=== PATIENT | male | born 1945 | race Caucasian/White ===

== ENCOUNTER 2024-08-29 02:07 | Inpatient (IN) | payer MEDICARE, MEDICAID ==
[2024-08-29] VITALS (25 sets, daily range): BP systolic 79–116; BP diastolic 26–82; PULSE 83–114; RESP 12–20; TEMP 97.4–98.5; O2SAT 94–96
[~2024-08-29] VITALS: Ht 157.5 cm; Wt 63.6 kg
[~2024-08-29 02:07] MED LIST: CEPH500C2 PO; ENZA40CA PO; PANT40TA54 PO; PHEN-716 PO
[2024-08-29 02:52] LABS: ALANINE AMINOTRANSFERASE 25 U/L (12-78); ALBUMIN/GLOBULIN RATIO 1.9 (1.1-1.5); ALKALINE PHOSPHATASE 69 IU/L (46-116); ANION GAP 12 (8-16); ASPARTATE AMINO TRANSFERASE 14 U/L (10-37); BILIRUBIN,TOTAL 1.1 MG/DL (0.1-1.0); BLOOD UREA NITROGEN 48 MG/DL (7-18); BUN/CREATININE RATIO 70.6 (10.0-20.0); CALCIUM 7.9 MG/DL (8.5-10.1); CHLORIDE 107 MMOL/L (99-107); CREATININE 0.68 MG/DL (0.60-1.10); GLUCOSE 212 MG/DL (70-104); LIPASE 21 U/L (16-77); SODIUM 142 MMOL/L (135-145); TOTAL CARBON DIOXIDE 23.3 MMOL/L (24-32); TOTAL PROTEIN 4.6 G/DL (6.4-8.2); eCRCL 67 ML/MIN; eGFR > 90 ML/MIN
[2024-08-29] MEDS: pantoprazole 40 MG vial IV ONE (02:59)
[2024-08-29] MEDS: ondansetron/PF 4mg/2ml inj IV ONE (03:00)
[2024-08-29] MEDS: normal saline 1000ml 1,000 ML IV ONE (03:04)
[2024-08-29 04:31] LABS: MEAN CORPUSCULAR HEMOGLOBIN 31.7 PG (27.0-31.0); MEAN CORPUSCULAR HGB CONC 30.8 g/dL (33.0-36.5)
[2024-08-29 04:33] LABS: MEAN PLATELET VOLUME 9.7 FL (7.4-10.4); PLATELET COUNT 260 X10'3 (140-440); RED BLOOD COUNT 1.52 X10'6 (4.70-6.10); RED CELL DISTRIBUTION WIDTH 41.8 % (11.5-14.5)
[2024-08-29 04:40] LABS: HEMATOCRIT 15.7 % (42.0-52.0); HEMOGLOBIN 4.8 g/dl (14.0-17.9)
[2024-08-29] MEDS: tranexamic acid 100mg/ml inj. IV ONE (04:46)
[2024-08-29] MEDS: proCHLORperazine 10 MG/2 ml inj IV ONE (05:19)
[2024-08-29 05:46] LABS: LYMPHOCYTES % (MANUAL) 6 % (21-51); METAMYLEOCYTES% (MANUAL) 2 % (0-0); NEUTROPHILS % (MANUAL) 92 % (42-75); TOTAL CELLS COUNTED 100
[2024-08-29 05:47] LABS: ANISOCYTOSIS 3+; HYPERSEGMENTED NEUTROPHILS FEW; LARGE PLATELETS FEW; PLATELET ESTIMATE NORMAL; POLYCHROMASIA 2+
[2024-08-29 05:48] LABS: NUCLEATED RED BLOOD CELLS 2 /100WBC (0-0); TEAR DROP CELLS 2+
[2024-08-29] MEDS: pantoprazole 40MG/NS 100ML BAG 100 ML IV SCH (07:37)
[2024-08-29] MEDS ORDERED: magnesium sulf-water 2g/50mL 50 ML IV PRN (07:50)
[2024-08-29] MEDS ORDERED: magnesium hydroxide 30ml (MOM) UD suspension PO PRN (07:50)
[2024-08-29] MEDS ORDERED: ondansetron/PF 4mg/2ml inj IV PRN (07:50)
[2024-08-29] MEDS ORDERED: magnesium sulf-water 4G/100mL 100 ML IV PRN (07:50)
[2024-08-29] MEDS ORDERED: potassium Cl 20 mEq SR tablet PO PRN ×2 (07:50)
[2024-08-29] MEDS ORDERED: magnesium Cl slow-release 64mg tablet PO PRN (07:50)
[2024-08-29] MEDS ORDERED: mag hydrox/Alum hydrox/simeth 30ml oral suspension PO PRN (07:50)
[2024-08-29] MEDS ORDERED: potassium Cl 40MEQ/1/2NS 520ml 520 ML IV PRN (07:50)
[2024-08-29 07:58] LABS: BASOPHILS % (AUTO) 0.2 % (0-1); EOSINOPHILS % (AUTO) 0 % (0-6); MONOCYTES # (AUTO) 0.9 X10'3 (0-0.9)
[2024-08-29 07:59] LABS: HEMATOCRIT 26.1 % (42.0-52.0); HEMOGLOBIN 8.5 g/dl (14.0-17.9); LYMPHOCYTES # (AUTO) 1.5 X10'3 (1.1-4.8); LYMPHOCYTES % (AUTO) 9.4 % (21-51); MEAN CORPUSCULAR HEMOGLOBIN 29.6 PG (27.0-31.0); MEAN CORPUSCULAR HGB CONC 32.7 g/dL (33.0-36.5); MEAN CORPUSCULAR VOLUME 90.6 FL (78-98); MONOCYTES % (AUTO) 5.8 % (2-12); NEUTROPHILS # (AUTO) 13.8 X10'3 (1.8-7.7); NEUTROPHILS % (AUTO) 84.6 % (42-75); PLATELET COUNT 172 X10'3 (140-440); RED BLOOD COUNT 2.88 X10'6 (4.70-6.10); RED CELL DISTRIBUTION WIDTH 19.2 % (11.5-14.5); WHITE BLOOD COUNT 16.3 X10'3 (4.5-11.0)
[2024-08-29] MEDS: K and/or MAG REPLACEMENT MC SCH (08:00)
[2024-08-29] MEDS: docusate sod 100mg capsule PO SCH (08:00)
[2024-08-29] MEDS ORDERED: NAPR-56 PO (08:13)
[2024-08-29] MEDS ORDERED: baclofen PO (08:14)
[2024-08-29] MEDS ORDERED: calcium gluconate inj. 2 GM in normal saline 100ml IV soln 100 ML IV ONE (08:30)
[2024-08-29 08:32] LABS: APTT 24 SECONDS (22-32); INR 1.3 INR; PROTHROMBIN TIME 13.4 SECONDS (9.0-12.0)
[2024-08-29] MEDS ORDERED: CALC-1276 (08:47)
[2024-08-29] MEDS ORDERED: NAPR-1170 PO (08:47)
[2024-08-29] MEDS ORDERED: BACL10TA2 PO (08:47)
[2024-08-29] MEDS ORDERED: FERR325T29 (08:47)
[2024-08-29 08:51] LABS: ANISOCYTOSIS 2+; NUCLEATED RED BLOOD CELLS 1 /100WBC (0-0); PLATELET ESTIMATE NORMAL; TOTAL CELLS COUNTED 100
[2024-08-29 08:52] LABS: POIKILOCYTOSIS 1+; POLYCHROMASIA FEW
[2024-08-29] MEDS ORDERED: B6 PO (08:52)
[2024-08-29] MEDS ORDERED: B12 PO (08:52)
[2024-08-29] MEDS ORDERED: Magnesium PO (08:52)
[2024-08-29 08:53] LABS: BURR CELLS FEW; ELLIPTOCYTES FEW; HYPERSEGMENTED NEUTROPHILS FEW; SCHISTOCYTES FEW
[2024-08-29 09:17] LABS: HEMOGLOBIN A1C 5.2 % (4.5-6.2)
[2024-08-29] MEDS: CALCIUM GLUC 1gm/50ml NACL,iso 50 ML IV SCH (09:34)
[2024-08-29] MEDS ORDERED: MIDAZolam 1 MG/ML 5ML VIAL ONE (10:58)
[2024-08-29] MEDS ORDERED: LIDOcaine 2% Viscous 15ml cup ONE (10:58)
[2024-08-29] MEDS ORDERED: fentaNYL/PF 50MCG/1 ML 2ML syringe ONE (10:58)
[2024-08-29] MEDS ORDERED: epiNEPHrine 0.1mg/ml 10ml syringe ONE ×2 (11:11→11:12)
[2024-08-29] MEDS: normal saline 1000ml 1,000 ML IV SCH (12:57)
[2024-08-29 12:58] LABS: MEAN CORPUSCULAR HEMOGLOBIN 29.1 PG (27.0-31.0); MEAN CORPUSCULAR HGB CONC 32.5 g/dL (33.0-36.5); MEAN CORPUSCULAR VOLUME 89.6 FL (78-98); PLATELET COUNT 151 X10'3 (140-440); RED BLOOD COUNT 2.03 X10'6 (4.70-6.10); RED CELL DISTRIBUTION WIDTH 18.2 % (11.5-14.5); WHITE BLOOD COUNT 21.1 X10'3 (4.5-11.0)
[2024-08-29 13:08] LABS: HEMOGLOBIN 5.9 g/dl (14.0-17.9)
[2024-08-29 13:09] LABS: HEMATOCRIT 18.1 % (42.0-52.0)
[2024-08-29 13:31] LABS: HYPOCHROMASIA 1+
[2024-08-29 13:33] LABS: ELLIPTOCYTES FEW
[2024-08-29 13:34] LABS: SCHISTOCYTES 1+
[2024-08-29] MEDS: baclofen 10mg tablet PO SCH (21:00)
[2024-08-29 21:53] LABS: BASOPHILS % (AUTO) 0.2 % (0-1); EOSINOPHILS % (AUTO) 0.3 % (0-6); LYMPHOCYTES # (AUTO) 1.7 X10'3 (1.1-4.8); LYMPHOCYTES % (AUTO) 14.5 % (21-51); MEAN CORPUSCULAR HEMOGLOBIN 31.1 PG (27.0-31.0); MEAN CORPUSCULAR HGB CONC 33.5 g/dL (33.0-36.5); MEAN CORPUSCULAR VOLUME 92.8 FL (78-98); MEAN PLATELET VOLUME 8.8 FL (7.4-10.4); MONOCYTES # (AUTO) 0.8 X10'3 (0-0.9); MONOCYTES % (AUTO) 7.1 % (2-12); NEUTROPHILS # (AUTO) 9.3 X10'3 (1.8-7.7); NEUTROPHILS % (AUTO) 77.9 % (42-75); PLATELET COUNT 113 X10'3 (140-440); RED BLOOD COUNT 2.04 X10'6 (4.70-6.10); RED CELL DISTRIBUTION WIDTH 20.6 % (11.5-14.5)
[2024-08-29 21:56] LABS: HEMOGLOBIN 6.4 g/dl (14.0-17.9)
[2024-08-29 22:32] LABS: HYPOCHROMASIA 1+; LARGE PLATELETS FEW; PLATELET ESTIMATE DECREASED; POLYCHROMASIA 1+
[2024-08-29 22:33] LABS: ANISOCYTOSIS 2+; ELLIPTOCYTES FEW; MICROCYTOSIS 1+; TEAR DROP CELLS FEW
[2024-08-30] VITALS (8 sets, daily range): BP systolic 92–121; BP diastolic 33–48; PULSE 69–90; RESP 12–21; TEMP 97.3–98; O2SAT 94–100
[2024-08-30 06:58] LABS: BASOPHILS % (AUTO) 0.3 % (0-1); EOSINOPHILS # (AUTO) 0.2 X10'3 (0-0.9); EOSINOPHILS % (AUTO) 1.7 % (0-6); HEMATOCRIT 23.2 % (42.0-52.0); HEMOGLOBIN 7.9 g/dl (14.0-17.9); LYMPHOCYTES # (AUTO) 1.4 X10'3 (1.1-4.8); LYMPHOCYTES % (AUTO) 15.1 % (21-51); MEAN CORPUSCULAR HEMOGLOBIN 31.9 PG (27.0-31.0); MEAN CORPUSCULAR HGB CONC 34.1 g/dL (33.0-36.5); MEAN CORPUSCULAR VOLUME 93.6 FL (78-98); MEAN PLATELET VOLUME 9.4 FL (7.4-10.4); MONOCYTES # (AUTO) 0.5 X10'3 (0-0.9); MONOCYTES % (AUTO) 5.6 % (2-12); NEUTROPHILS % (AUTO) 77.3 % (42-75); PLATELET COUNT 106 X10'3 (140-440); RED BLOOD COUNT 2.48 X10'6 (4.70-6.10); RED CELL DISTRIBUTION WIDTH 18.5 % (11.5-14.5)
[2024-08-30 07:15] LABS: ALBUMIN 2.5 G/DL (3.4-5.0); ANION GAP 6 (8-16); BLOOD UREA NITROGEN 33 MG/DL (7-18); BUN/CREATININE RATIO 52.4 (10.0-20.0); CALCIUM 7.7 MG/DL (8.5-10.1); CHLORIDE 112 MMOL/L (99-107); CHOL/HDL RATIO 2.6 (0.00-4.99); CHOLESTEROL 69 MG/DL (0-200); CREATININE 0.63 MG/DL (0.60-1.10); GLUCOSE 93 MG/DL (70-104); HDL CHOLESTEROL 27 MG/DL (35-60); LDL CHOLESTEROL 27 MG/DL (50-100); MAGNESIUM 1.9 MG/DL (1.5-2.4); SODIUM 142 MMOL/L (135-145); TOTAL CARBON DIOXIDE 24.4 MMOL/L (24-32); TRIGLYCERIDES 120 MG/DL (20-135); eCRCL 72 ML/MIN; eGFR > 90 ML/MIN
[2024-08-30 07:19] LABS: POTASSIUM 4.5 MMOL/L (3.5-5.1)
[2024-08-30 07:47] LABS: BASOPHILS % (AUTO) 0.3 % (0-1); EOSINOPHILS # (AUTO) 0.2 X10'3 (0-0.9); HEMOGLOBIN 7.5 g/dl (14.0-17.9); LYMPHOCYTES % (AUTO) 11.5 % (21-51); MEAN CORPUSCULAR HEMOGLOBIN 32.3 PG (27.0-31.0); MEAN CORPUSCULAR HGB CONC 34.8 g/dL (33.0-36.5); MEAN CORPUSCULAR VOLUME 93.1 FL (78-98); MEAN PLATELET VOLUME 9.3 FL (7.4-10.4); MONOCYTES # (AUTO) 0.5 X10'3 (0-0.9); MONOCYTES % (AUTO) 5.9 % (2-12); NEUTROPHILS # (AUTO) 7.3 X10'3 (1.8-7.7); NEUTROPHILS % (AUTO) 80.3 % (42-75); PLATELET COUNT 97 X10'3 (140-440); RED BLOOD COUNT 2.33 X10'6 (4.70-6.10); RED CELL DISTRIBUTION WIDTH 18.6 % (11.5-14.5); WHITE BLOOD COUNT 9.1 X10'3 (4.5-11.0)
[2024-08-30] MEDS: ENZALUTAMIDE 40 MG PO SCH (08:00)
[2024-08-30 08:05] LABS: HEMATOCRIT 21.7 % (42.0-52.0)
[2024-08-30] MEDS: ringers solution, lacted 1,000 ML IV SCH (12:46)
[2024-08-30] MEDS: pantoprazole 40 MG vial IV SCH (12:48)
[2024-08-30 13:12] LABS: HEMATOCRIT 23.7 % (42.0-52.0); MEAN CORPUSCULAR HEMOGLOBIN 31.5 PG (27.0-31.0); MEAN CORPUSCULAR HGB CONC 33.8 g/dL (33.0-36.5); MEAN CORPUSCULAR VOLUME 93.4 FL (78-98); MEAN PLATELET VOLUME 8.9 FL (7.4-10.4); PLATELET COUNT 106 X10'3 (140-440); RED BLOOD COUNT 2.54 X10'6 (4.70-6.10); RED CELL DISTRIBUTION WIDTH 18.4 % (11.5-14.5); WHITE BLOOD COUNT 9.5 X10'3 (4.5-11.0)
[2024-08-30 13:24] LABS: % IRON SATURATION 105 % (11-46); IRON 188 UG/DL (53-167); TOTAL IRON BINDING CAPACITY 179 UG/DL (259-388)
[2024-08-31 07:37] LABS: BASOPHILS % (AUTO) 0.4 % (0-1); EOSINOPHILS # (AUTO) 0.2 X10'3 (0-0.9); EOSINOPHILS % (AUTO) 2.6 % (0-6); HEMOGLOBIN 7.2 g/dl (14.0-17.9); LYMPHOCYTES # (AUTO) 0.8 X10'3 (1.1-4.8); LYMPHOCYTES % (AUTO) 11.2 % (21-51); MEAN CORPUSCULAR HEMOGLOBIN 32.1 PG (27.0-31.0); MEAN CORPUSCULAR HGB CONC 34.3 g/dL (33.0-36.5); MEAN CORPUSCULAR VOLUME 93.4 FL (78-98); MEAN PLATELET VOLUME 8.9 FL (7.4-10.4); MONOCYTES # (AUTO) 0.5 X10'3 (0-0.9); MONOCYTES % (AUTO) 6.4 % (2-12); NEUTROPHILS # (AUTO) 5.6 X10'3 (1.8-7.7); NEUTROPHILS % (AUTO) 79.4 % (42-75); PLATELET COUNT 80 X10'3 (140-440); RED BLOOD COUNT 2.26 X10'6 (4.70-6.10); RED CELL DISTRIBUTION WIDTH 18.7 % (11.5-14.5)
[2024-08-31 07:51] LABS: ALBUMIN 2.4 G/DL (3.4-5.0); ANION GAP 5 (8-16); BLOOD UREA NITROGEN 13 MG/DL (7-18); BUN/CREATININE RATIO 19.7 (10.0-20.0); CALCIUM 7.5 MG/DL (8.5-10.1); CHLORIDE 112 MMOL/L (99-107); CREATININE 0.66 MG/DL (0.60-1.10); GLUCOSE 99 MG/DL (70-104); MAGNESIUM 1.6 MG/DL (1.5-2.4); POTASSIUM 3.8 MMOL/L (3.5-5.1); SODIUM 143 MMOL/L (135-145); eCRCL 69 ML/MIN; eGFR > 90 ML/MIN
[2024-08-31 08:00] VITALS: RESP 18; O2SAT 100
[2024-08-31 08:03] LABS: HEMATOCRIT 21.1 % (42.0-52.0)
[2024-08-31 11:00] VITALS: BP 141/58; PULSE 85; RESP 18; TEMP 98; O2SAT 95
[2024-08-31 11:44] LABS: HEMATOCRIT 23.9 % (42.0-52.0); HEMOGLOBIN 8.2 g/dl (14.0-17.9); MEAN CORPUSCULAR HEMOGLOBIN 32.1 PG (27.0-31.0); MEAN CORPUSCULAR HGB CONC 34.3 g/dL (33.0-36.5); MEAN CORPUSCULAR VOLUME 93.5 FL (78-98); MEAN PLATELET VOLUME 8.9 FL (7.4-10.4); PLATELET COUNT 102 X10'3 (140-440); RED BLOOD COUNT 2.56 X10'6 (4.70-6.10); RED CELL DISTRIBUTION WIDTH 17.8 % (11.5-14.5); WHITE BLOOD COUNT 9.4 X10'3 (4.5-11.0)
[2024-08-31 15:00] VITALS: BP 137/60; PULSE 98; RESP 24; TEMP 99.6; O2SAT 95
[2024-08-31 18:00] VITALS: BP 149/56; PULSE 92; RESP 17; TEMP 97.5; O2SAT 93
[2024-08-31 20:00] VITALS: RESP 20; O2SAT 94
[2024-08-31 22:00] VITALS: BP 155/69; PULSE 89; RESP 20; TEMP 97.5; O2SAT 92
[2024-09-01 06:00] VITALS: BP 152/80; PULSE 91; RESP 15; TEMP 97.3; O2SAT 91
[2024-09-01 07:02] LABS: BASOPHILS % (AUTO) 0.3 % (0-1); EOSINOPHILS # (AUTO) 0.1 X10'3 (0-0.9); EOSINOPHILS % (AUTO) 2.1 % (0-6); HEMOGLOBIN 7.1 g/dl (14.0-17.9); LYMPHOCYTES # (AUTO) 0.6 X10'3 (1.1-4.8); LYMPHOCYTES % (AUTO) 10.3 % (21-51); MEAN CORPUSCULAR HEMOGLOBIN 32.5 PG (27.0-31.0); MEAN CORPUSCULAR HGB CONC 34.3 g/dL (33.0-36.5); MEAN CORPUSCULAR VOLUME 94.6 FL (78-98); MEAN PLATELET VOLUME 11.4 FL (7.4-10.4); MONOCYTES # (AUTO) 0.4 X10'3 (0-0.9); MONOCYTES % (AUTO) 6.2 % (2-12); NEUTROPHILS # (AUTO) 4.9 X10'3 (1.8-7.7); NEUTROPHILS % (AUTO) 81.1 % (42-75); PLATELET COUNT 89 X10'3 (140-440); RED BLOOD COUNT 2.19 X10'6 (4.70-6.10); RED CELL DISTRIBUTION WIDTH 18.5 % (11.5-14.5); WHITE BLOOD COUNT 6.1 X10'3 (4.5-11.0)
[2024-09-01 07:16] LABS: HEMATOCRIT 20.8 % (42.0-52.0)
[2024-09-01 07:36] LABS: ANISOCYTOSIS 2+; ELLIPTOCYTES FEW; LARGE PLATELETS FEW; PLATELET ESTIMATE DECREASED
[2024-09-01 07:37] LABS: TEAR DROP CELLS FEW
[2024-09-01 07:38] LABS: ALBUMIN 2.4 G/DL (3.4-5.0); ANION GAP 6 (8-16); BLOOD UREA NITROGEN 7 MG/DL (7-18); BUN/CREATININE RATIO 11.3 (10.0-20.0); CALCIUM 7.5 MG/DL (8.5-10.1); CHLORIDE 110 MMOL/L (99-107); CREATININE 0.62 MG/DL (0.60-1.10); GLUCOSE 99 MG/DL (70-104); MAGNESIUM 1.5 MG/DL (1.5-2.4); POTASSIUM 3.3 MMOL/L (3.5-5.1); SODIUM 142 MMOL/L (135-145); TOTAL CARBON DIOXIDE 25.7 MMOL/L (24-32); eCRCL 73 ML/MIN; eGFR > 90 ML/MIN
[2024-09-01 08:00] VITALS: RESP 15; O2SAT 91
[2024-09-01 09:43] LABS: HEMATOCRIT 23.9 % (42.0-52.0); HEMOGLOBIN 8.2 g/dl (14.0-17.9); MEAN CORPUSCULAR HEMOGLOBIN 32.4 PG (27.0-31.0); MEAN CORPUSCULAR HGB CONC 34.3 g/dL (33.0-36.5); MEAN CORPUSCULAR VOLUME 94.7 FL (78-98); PLATELET COUNT 127 X10'3 (140-440); RED BLOOD COUNT 2.53 X10'6 (4.70-6.10); RED CELL DISTRIBUTION WIDTH 18.9 % (11.5-14.5); WHITE BLOOD COUNT 11.3 X10'3 (4.5-11.0)
[2024-09-01 11:00] VITALS: BP 142/70; PULSE 96; RESP 19; TEMP 99.5; O2SAT 93
[2024-09-01 13:15] LABS: FOLATE SERUM(FOLIC) 19.3 ng/mL (>3.0)
[2024-09-01] MEDS: potassium Cl 20 mEq SR tablet PO STA (13:32)
[2024-09-01] MEDS: acetaminophen 325mg tablet PO PRN (13:32)
== END 2024-09-01 16:00 | DRG 356 ==
LOC: ER 02:08 → ED HOLD 07:33 → PCU 3S 14:56
PROVIDERS: ADMIT Family Medicine; ATTEND Family Medicine
PROC: 0DB78ZX Excision of Stomach, Pylorus, Via Natural or Artificial Opening Endoscopic, Diagnostic (ICD-10-PCS; principal; 2024-08-29)
PROC: 3E0G8GC Introduction of Other Therapeutic Substance into Upper GI, Via Natural or Artificial Opening Endoscopic (ICD-10-PCS; 2024-08-29)
PROC: 30233K1 Transfusion of Nonautologous Frozen Plasma into Peripheral Vein, Percutaneous Approach (ICD-10-PCS; 2024-08-29)
PROC: 30233R1 Transfusion of Nonautologous Platelets into Peripheral Vein, Percutaneous Approach (ICD-10-PCS; 2024-08-29)
PROC: 30233N1 Transfusion of Nonautologous Red Blood Cells into Peripheral Vein, Percutaneous Approach (ICD-10-PCS; 2024-08-29)
PROC: 0W3P4ZZ Control Bleeding in Gastrointestinal Tract, Percutaneous Endoscopic Approach (ICD-10-PCS; 2024-08-29)
DX: K25.4 Chronic or unspecified gastric ulcer with hemorrhage (principal); R57.1 Hypovolemic shock; K22.2 Esophageal obstruction; Z66 Do not resuscitate; K44.9 Diaphragmatic hernia without obstruction or gangrene; N40.0 Benign prostatic hyperplasia without lower urinary tract symptoms; H11.31 Conjunctival hemorrhage, right eye; K22.89 Other specified disease of esophagus; I10 Essential (primary) hypertension; M54.9 Dorsalgia, unspecified; Z88.1 Allergy status to other antibiotic agents; Z88.5 Allergy status to narcotic agent; Z79.899 Other long term (current) drug therapy; Z85.46 Personal history of malignant neoplasm of prostate
CPT/HCPCS: 36415; 36430; 43255; 71045; 74176; 80048; 80053; 80061; 82607; 82746; 83036; 83540; 83550; 83690; 83735; 84466; 85007; 85008; 85025; 85027; 85610; 85730; 86885; 86900; 86901; 86920; 87081; 93005; 93306; 97116; 97161; 97530; 99152; 99291; 99292; A4615; A4620; A6258; A6590; G0378; J0171; J0610; J0780; J2250; J2405; J2470; J3010; J3490; J7030; J7040; J7050; J7120; P9016; P9035; P9059

== ENCOUNTER 2024-09-08 09:47 | Inpatient (IN) | payer MEDICARE, MEDICAID ==
[~2024-09-08] VITALS: Ht 157.5 cm; Wt 69.1 kg
[~2024-09-08 09:47] MED LIST changes: +B12 PO; +B6 PO; +BACL10TA2 PO; +CALC-1276; -CEPH500C2 PO; +FERR325T29; +Magnesium PO; +NAPR-1170 PO; +NAPR-56 PO; -PANT40TA54 PO; -PHEN-716 PO
[2024-09-08 10:29] LABS: EOSINOPHILS # (AUTO) 0.3 X10'3 (0-0.9); EOSINOPHILS % (AUTO) 2.2 % (0-6); HEMOGLOBIN 7.9 g/dl (14.0-17.9); RED CELL DISTRIBUTION WIDTH 19.6 % (11.5-14.5)
[2024-09-08 10:30] LABS: BASOPHILS # (AUTO) 0.1 X10'3 (0-0.2); BASOPHILS % (AUTO) 0.5 % (0-1); HEMATOCRIT 24.1 % (42.0-52.0); LYMPHOCYTES # (AUTO) 1.1 X10'3 (1.1-4.8); LYMPHOCYTES % (AUTO) 9.5 % (21-51); MEAN CORPUSCULAR HEMOGLOBIN 31.6 PG (27.0-31.0); MEAN CORPUSCULAR HGB CONC 32.8 g/dL (33.0-36.5); MEAN CORPUSCULAR VOLUME 96.4 FL (78-98); MEAN PLATELET VOLUME 10.4 FL (7.4-10.4); MONOCYTES # (AUTO) 0.7 X10'3 (0-0.9); MONOCYTES % (AUTO) 6.2 % (2-12); NEUTROPHILS # (AUTO) 9.5 X10'3 (1.8-7.7); NEUTROPHILS % (AUTO) 81.6 % (42-75); PLATELET COUNT 172 X10'3 (140-440); WHITE BLOOD COUNT 11.7 X10'3 (4.5-11.0)
[2024-09-08 10:59] LABS: ANISOCYTOSIS 2+; PLATELET ESTIMATE NORMAL
[2024-09-08 11:00] LABS: LARGE PLATELETS FEW
[2024-09-08 11:01] LABS: POLYCHROMASIA FEW; TEAR DROP CELLS FEW
[2024-09-08 11:31] LABS: ALBUMIN 2.9 G/DL (3.4-5.0); ANION GAP 8 (8-16); BLOOD UREA NITROGEN 13 MG/DL (7-18); BUN/CREATININE RATIO 23.2 (10.0-20.0); CALCIUM 8.7 MG/DL (8.5-10.1); CHLORIDE 104 MMOL/L (99-107); CREATININE 0.56 MG/DL (0.60-1.10); GLUCOSE 113 MG/DL (70-104); MAGNESIUM 1.9 MG/DL (1.5-2.4); POTASSIUM 4.6 MMOL/L (3.5-5.1); PRO BRAIN NATRIURETIC PEPTIDE 440 PG/ML (0-450); SODIUM 140 MMOL/L (135-145); TOTAL CARBON DIOXIDE 27.6 MMOL/L (24-32); eCRCL 81 ML/MIN; eGFR > 90 ML/MIN
[2024-09-08] MEDS: CefTRIAXone 2gm/D5W 50ml BAG 50 ML IV ONE (13:14)
[2024-09-08] MEDS ORDERED: magnesium Cl slow-release 64mg tablet PO PRN (15:10)
[2024-09-08] MEDS ORDERED: ondansetron/PF 4mg/2ml inj IV PRN (15:10)
[2024-09-08] MEDS ORDERED: potassium Cl 40MEQ/1/2NS 520ml 520 ML IV PRN (15:10)
[2024-09-08] MEDS ORDERED: HYDROmorphone/PF 0.2 MG/ML SYRINGE IV PRN (15:10)
[2024-09-08] MEDS ORDERED: mag hydrox/Alum hydrox/simeth 30ml oral suspension PO PRN (15:10)
[2024-09-08] MEDS ORDERED: potassium Cl 20 mEq SR tablet PO PRN ×2 (15:10)
[2024-09-08] MEDS ORDERED: magnesium sulf-water 2g/50mL 50 ML IV PRN (15:10)
[2024-09-08] MEDS ORDERED: magnesium sulf-water 4G/100mL 100 ML IV PRN (15:10)
[2024-09-08] MEDS ORDERED: magnesium hydroxide 30ml (MOM) UD suspension PO PRN (15:10)
[2024-09-08] MEDS ORDERED: morphine 2 MG/ML inj. syringe IV PRN (15:10)
[2024-09-08] MEDS: vancomycin/NS 1 GM ADD-VANTAGE 250 ML IV SCH (17:52)
[2024-09-08 18:13] LABS: HEMOGLOBIN 7.5 g/dl (14.0-17.9); MEAN CORPUSCULAR HEMOGLOBIN 31.8 PG (27.0-31.0); MEAN CORPUSCULAR HGB CONC 32.8 g/dL (33.0-36.5); MEAN CORPUSCULAR VOLUME 96.8 FL (78-98); MEAN PLATELET VOLUME 8.8 FL (7.4-10.4); PLATELET COUNT 152 X10'3 (140-440); RED BLOOD COUNT 2.37 X10'6 (4.70-6.10); RED CELL DISTRIBUTION WIDTH 19.7 % (11.5-14.5); WHITE BLOOD COUNT 8.5 X10'3 (4.5-11.0)
[2024-09-08] MEDS ORDERED: ipratropium/albuterol 3ml nebule NEB PRN (19:00)
[2024-09-08] MEDS: albuterol 2.5 MG/3 ML nebule NEB SCH (19:21)
[2024-09-08 19:22] VITALS: PULSE 73; RESP 16; O2SAT 95
[2024-09-08 19:24] LABS: BILIRUBIN,URINE NEGATIVE (Neg); CLARITY,URINE CLOUDY (Clear); COLOR,URINE YELLOW (Yellow); GLUCOSE, URINE NEGATIVE (Neg); KETONES,URINE NEGATIVE (Neg); LEUKOCYTE ESTERASE ,URINE SMALL (Neg); NITRITES, URINE NEGATIVE (Neg); OCCULT BLOOD,URINE NEGATIVE (Neg); PROTEIN,URINE NEGATIVE (Neg); UROBILINOGEN,URINE 0.2 E.U/dL (0.2-1.0)
[2024-09-08 19:26] LABS: UA COLLECTION TYPE URINAL
[2024-09-08 19:28] VITALS: PULSE 76; RESP 16
[2024-09-08 19:46] LABS: BACTERIA,URINE 3+ /HPF (Neg); RBC,URINE NONE SEEN /HPF (0-2); SQUAMOUS EPITHELIAL CELL,UR FEW /LPF (FEW)
[2024-09-08] MEDS: methylPREDNISolone sod succ 125mg/2ml vial IV ONE (19:48)
[2024-09-08] MEDS: pantoprazole 40 MG vial IV SCH (19:49)
[2024-09-08] MEDS: piperacillin/tazo 3.375gm/50ml 50 ML IV SCH (19:51)
[2024-09-08] MEDS: docusate sod 100mg capsule PO SCH (19:58)
[2024-09-08] MEDS: K and/or MAG REPLACEMENT MC SCH (20:00)
[2024-09-09] VITALS (16 sets, daily range): BP systolic 126–144; BP diastolic 48–64; PULSE 55–95; RESP 13–23; TEMP 96.9–98.2; O2SAT 95–99
[2024-09-09 07:23] LABS: BASOPHILS % (AUTO) 0.6 % (0-1); EOSINOPHILS # (AUTO) 0.1 X10'3 (0-0.9); HEMATOCRIT 22.6 % (42.0-52.0); HEMOGLOBIN 7.4 g/dl (14.0-17.9); LYMPHOCYTES % (AUTO) 17.2 % (21-51); MEAN CORPUSCULAR HEMOGLOBIN 31.8 PG (27.0-31.0); MEAN CORPUSCULAR HGB CONC 32.7 g/dL (33.0-36.5); MEAN CORPUSCULAR VOLUME 97.2 FL (78-98); MEAN PLATELET VOLUME 9.9 FL (7.4-10.4); MONOCYTES # (AUTO) 0.3 X10'3 (0-0.9); MONOCYTES % (AUTO) 5.2 % (2-12); NEUTROPHILS # (AUTO) 4.5 X10'3 (1.8-7.7); PLATELET COUNT 161 X10'3 (140-440); RED BLOOD COUNT 2.33 X10'6 (4.70-6.10); RED CELL DISTRIBUTION WIDTH 20.2 % (11.5-14.5); WHITE BLOOD COUNT 5.9 X10'3 (4.5-11.0)
[2024-09-09 07:36] LABS: ALANINE AMINOTRANSFERASE 26 U/L (12-78); ALBUMIN 2.7 G/DL (3.4-5.0); ALKALINE PHOSPHATASE 111 IU/L (46-116); ANION GAP 8 (8-16); ASPARTATE AMINO TRANSFERASE 27 U/L (10-37); BILIRUBIN,TOTAL 0.6 MG/DL (0.1-1.0); BLOOD UREA NITROGEN 15 MG/DL (7-18); BUN/CREATININE RATIO 26.8 (10.0-20.0); CALCIUM 8.4 MG/DL (8.5-10.1); CHLORIDE 106 MMOL/L (99-107); CREATININE 0.56 MG/DL (0.60-1.10); GLUCOSE 104 MG/DL (70-104); MAGNESIUM 2.1 MG/DL (1.5-2.4); SODIUM 140 MMOL/L (135-145); TOTAL CARBON DIOXIDE 26.4 MMOL/L (24-32); TOTAL PROTEIN 5.4 G/DL (6.4-8.2); eCRCL 81 ML/MIN; eGFR > 90 ML/MIN
[2024-09-09 07:40] LABS: POTASSIUM 5.1 MMOL/L (3.5-5.1)
[2024-09-09] MEDS: methylPREDNISolone sod succ/PF 40mg inj. IV SCH (08:30)
[2024-09-09] MEDS ORDERED: albuterol 2.5 MG/3 ML nebule NEB SCH (09:45)
[2024-09-09] MEDS ORDERED: guaiFENesin 200 MG/10 ML oral syrup UD cup PO PRN (09:50)
[2024-09-09] MEDS: acetaminophen 325mg tablet PO PRN (19:53)
[2024-09-09] MEDS: albuterol 2.5 MG/3 ML nebule NEB SCH (20:53)
[2024-09-10] VITALS (15 sets, daily range): BP systolic 132–175; BP diastolic 56–84; PULSE 60–109; RESP 12–18; TEMP 97.6–98.2; O2SAT 92–100
[2024-09-10 02:56] LABS: BASOPHILS % (AUTO) 0.3 % (0-1); EOSINOPHILS % (AUTO) 0.1 % (0-6); LYMPHOCYTES # (AUTO) 0.7 X10'3 (1.1-4.8); LYMPHOCYTES % (AUTO) 9.1 % (21-51); MEAN CORPUSCULAR HEMOGLOBIN 32.1 PG (27.0-31.0); MEAN CORPUSCULAR HGB CONC 33.4 g/dL (33.0-36.5); MEAN CORPUSCULAR VOLUME 96.3 FL (78-98); MEAN PLATELET VOLUME 9.1 FL (7.4-10.4); MONOCYTES # (AUTO) 0.4 X10'3 (0-0.9); MONOCYTES % (AUTO) 4.7 % (2-12); NEUTROPHILS # (AUTO) 6.5 X10'3 (1.8-7.7); NEUTROPHILS % (AUTO) 85.8 % (42-75); PLATELET COUNT 155 X10'3 (140-440); RED BLOOD COUNT 2.14 X10'6 (4.70-6.10); WHITE BLOOD COUNT 7.6 X10'3 (4.5-11.0)
[2024-09-10] MEDS: VANCOMYCIN LEVEL IV ONE (02:56)
[2024-09-10 03:05] LABS: HEMATOCRIT 20.6 % (42.0-52.0); HEMOGLOBIN 6.9 g/dl (14.0-17.9)
[2024-09-10 03:17] LABS: ALANINE AMINOTRANSFERASE 34 U/L (12-78); ALBUMIN 2.9 G/DL (3.4-5.0); ALBUMIN/GLOBULIN RATIO 1.1 (1.1-1.5); ALKALINE PHOSPHATASE 108 IU/L (46-116); ANION GAP 7 (8-16); ASPARTATE AMINO TRANSFERASE 17 U/L (10-37); BILIRUBIN,TOTAL 0.5 MG/DL (0.1-1.0); BLOOD UREA NITROGEN 18 MG/DL (7-18); BUN/CREATININE RATIO 25.7 (10.0-20.0); CALCIUM 8.3 MG/DL (8.5-10.1); CHLORIDE 105 MMOL/L (99-107); GLUCOSE 145 MG/DL (70-104); POTASSIUM 4.5 MMOL/L (3.5-5.1); SODIUM 139 MMOL/L (135-145); TOTAL CARBON DIOXIDE 27.3 MMOL/L (24-32); TOTAL PROTEIN 5.5 G/DL (6.4-8.2); VANCOMYCIN,TROUGH 9.3 ug/mL (10.0-20.0); eCRCL 65 ML/MIN; eGFR > 90 ML/MIN
[2024-09-10] MEDS ORDERED: vancomycin/NS 1 GM ADD-VANTAGE 250 ML IV SCH (05:35)
[2024-09-10] MEDS ORDERED: VANCOmycin 1250MG/NS 250ml Bag 250 ML IV SCH (09:00)
[2024-09-10 09:23] LABS: HEMATOCRIT 26.3 % (42.0-52.0); HEMOGLOBIN 8.7 g/dl (14.0-17.9); MEAN CORPUSCULAR HEMOGLOBIN 31.9 PG (27.0-31.0); MEAN CORPUSCULAR HGB CONC 33.2 g/dL (33.0-36.5); MEAN CORPUSCULAR VOLUME 95.8 FL (78-98); MEAN PLATELET VOLUME 9.6 FL (7.4-10.4); PLATELET COUNT 165 X10'3 (140-440); RED BLOOD COUNT 2.75 X10'6 (4.70-6.10); RED CELL DISTRIBUTION WIDTH 19.2 % (11.5-14.5); WHITE BLOOD COUNT 10.7 X10'3 (4.5-11.0)
[2024-09-10] MEDS ORDERED: VANCOMYCIN IV SCH (10:19)
[2024-09-10] MEDS ORDERED: NORMAL SALINE IV SCH (10:19)
[2024-09-10] MEDS: VANCOMYCIN IV SCH (11:51)
[2024-09-10] MEDS: NORMAL SALINE IV SCH (11:51)
[2024-09-10 12:00] LABS: OCCULT BLOOD STOOL NEGATIVE (Neg)
[2024-09-10] MEDS: LidoCAINE 2% Topical Jelly 11mL syringe (UROJET) TOP ONE (13:59)
[2024-09-10 14:25] LABS: HEMATOCRIT 24.8 % (42.0-52.0); HEMOGLOBIN 8.3 g/dl (14.0-17.9); MEAN CORPUSCULAR HEMOGLOBIN 31.9 PG (27.0-31.0); MEAN CORPUSCULAR HGB CONC 33.5 g/dL (33.0-36.5); MEAN CORPUSCULAR VOLUME 95.3 FL (78-98); MEAN PLATELET VOLUME 9.5 FL (7.4-10.4); PLATELET COUNT 188 X10'3 (140-440); RED BLOOD COUNT 2.61 X10'6 (4.70-6.10); RED CELL DISTRIBUTION WIDTH 19.3 % (11.5-14.5); WHITE BLOOD COUNT 12.2 X10'3 (4.5-11.0)
[2024-09-10] MEDS: dornase alfa 2.5mg/2.5mL 10 MG in normal saline 50ml IV soln 20 ML IPL SCH (18:02)
[2024-09-10] MEDS: tPA-cathflo 2mg/2ml IV flush 15 MG in normal saline 50ml IV soln 15 ML IPL SCH (18:02)
[2024-09-10] MEDS: LIDOCAINE 1% w/preservative (10 MG/ML) inj. 10mL VIAL IV SCH (18:03)
[2024-09-10] MEDS: baclofen 10mg tablet PO SCH (20:14)
[2024-09-10] MEDS: tamsulosin 0.4mg capsule PO SCH (20:15)
[2024-09-10] MEDS: methylPREDNISolone sod succ/PF 40mg inj. IV SCH (20:15)
[2024-09-10 20:52] LABS: HEMATOCRIT 24.7 % (42.0-52.0); HEMOGLOBIN 8.1 g/dl (14.0-17.9); MEAN CORPUSCULAR HEMOGLOBIN 31.3 PG (27.0-31.0); MEAN CORPUSCULAR HGB CONC 32.8 g/dL (33.0-36.5); MEAN CORPUSCULAR VOLUME 95.4 FL (78-98); MEAN PLATELET VOLUME 9.2 FL (7.4-10.4); PLATELET COUNT 181 X10'3 (140-440); RED BLOOD COUNT 2.59 X10'6 (4.70-6.10); RED CELL DISTRIBUTION WIDTH 19.2 % (11.5-14.5); WHITE BLOOD COUNT 11.2 X10'3 (4.5-11.0)
[2024-09-11] VITALS (11 sets, daily range): BP systolic 110–142; BP diastolic 50–59; PULSE 64–87; RESP 15–17; TEMP 97.2–98.1; O2SAT 96–99
[2024-09-11 07:28] LABS: ALANINE AMINOTRANSFERASE 32 U/L (12-78); ALBUMIN/GLOBULIN RATIO 1.2 (1.1-1.5); ALKALINE PHOSPHATASE 103 IU/L (46-116); ANION GAP 8 (8-16); ASPARTATE AMINO TRANSFERASE 17 U/L (10-37); BILIRUBIN,TOTAL 0.9 MG/DL (0.1-1.0); BLOOD UREA NITROGEN 11 MG/DL (7-18); BUN/CREATININE RATIO 15.3 (10.0-20.0); CALCIUM 8.3 MG/DL (8.5-10.1); CHLORIDE 105 MMOL/L (99-107); CREATININE 0.72 MG/DL (0.60-1.10); GLUCOSE 98 MG/DL (70-104); MAGNESIUM 2.1 MG/DL (1.5-2.4); POTASSIUM 4.3 MMOL/L (3.5-5.1); SODIUM 140 MMOL/L (135-145); TOTAL CARBON DIOXIDE 26.6 MMOL/L (24-32); TOTAL PROTEIN 5.6 G/DL (6.4-8.2); eCRCL 63 ML/MIN; eGFR > 90 ML/MIN
[2024-09-11 07:29] LABS: BASOPHILS % (AUTO) 0.1 % (0-1); EOSINOPHILS # (AUTO) 0.1 X10'3 (0-0.9); EOSINOPHILS % (AUTO) 0.8 % (0-6); HEMATOCRIT 23.6 % (42.0-52.0); HEMOGLOBIN 7.9 g/dl (14.0-17.9); LYMPHOCYTES # (AUTO) 1.4 X10'3 (1.1-4.8); LYMPHOCYTES % (AUTO) 13.7 % (21-51); MEAN CORPUSCULAR HEMOGLOBIN 32.1 PG (27.0-31.0); MEAN CORPUSCULAR HGB CONC 33.6 g/dL (33.0-36.5); MEAN CORPUSCULAR VOLUME 95.5 FL (78-98); MEAN PLATELET VOLUME 9.7 FL (7.4-10.4); MONOCYTES # (AUTO) 0.8 X10'3 (0-0.9); MONOCYTES % (AUTO) 7.6 % (2-12); NEUTROPHILS # (AUTO) 7.9 X10'3 (1.8-7.7); NEUTROPHILS % (AUTO) 77.8 % (42-75); PLATELET COUNT 164 X10'3 (140-440); RED BLOOD COUNT 2.47 X10'6 (4.70-6.10); RED CELL DISTRIBUTION WIDTH 18.9 % (11.5-14.5); WHITE BLOOD COUNT 10.2 X10'3 (4.5-11.0)
[2024-09-11] MEDS: ENZALUTAMIDE 40 MG PO SCH (08:00)
[2024-09-11] MEDS: pantoprazole 40 MG vial IV SCH (08:51)
[2024-09-11 10:18] LABS: HEMOGLOBIN 7.9 g/dl (14.0-17.9); MEAN CORPUSCULAR HEMOGLOBIN 31.5 PG (27.0-31.0); MEAN CORPUSCULAR VOLUME 95.6 FL (78-98); MEAN PLATELET VOLUME 9.8 FL (7.4-10.4); PLATELET COUNT 171 X10'3 (140-440); RED BLOOD COUNT 2.51 X10'6 (4.70-6.10); RED CELL DISTRIBUTION WIDTH 19.2 % (11.5-14.5); WHITE BLOOD COUNT 9.8 X10'3 (4.5-11.0)
[2024-09-11] MEDS: acetaminophen 325mg tablet PO PRN (10:25)
[2024-09-11] MEDS: LIDOcaine 5% patch TP PRN (13:25)
[2024-09-11 15:30] LABS: HEMOGLOBIN 9.4 g/dl (14.0-17.9); MEAN CORPUSCULAR HEMOGLOBIN 31.3 PG (27.0-31.0); MEAN CORPUSCULAR HGB CONC 32.6 g/dL (33.0-36.5); MEAN CORPUSCULAR VOLUME 96.1 FL (78-98); MEAN PLATELET VOLUME 9.5 FL (7.4-10.4); PLATELET COUNT 209 X10'3 (140-440); RED BLOOD COUNT 3.02 X10'6 (4.70-6.10); RED CELL DISTRIBUTION WIDTH 18.9 % (11.5-14.5); WHITE BLOOD COUNT 12.4 X10'3 (4.5-11.0)
[2024-09-11 15:44] LABS: ANISOCYTOSIS 2+; ELLIPTOCYTES FEW; MICROCYTOSIS 1+; PLATELET ESTIMATE NORMAL; POIKILOCYTOSIS FEW
[2024-09-11] MEDS: VANCOMYCIN LEVEL IV ONE (20:30)
[2024-09-11 21:32] LABS: HEMATOCRIT 25.5 % (42.0-52.0); HEMOGLOBIN 8.5 g/dl (14.0-17.9); MEAN CORPUSCULAR HGB CONC 33.2 g/dL (33.0-36.5); MEAN CORPUSCULAR VOLUME 96.3 FL (78-98); MEAN PLATELET VOLUME 9.5 FL (7.4-10.4); PLATELET COUNT 175 X10'3 (140-440); RED BLOOD COUNT 2.65 X10'6 (4.70-6.10); RED CELL DISTRIBUTION WIDTH 19.4 % (11.5-14.5)
[2024-09-12] VITALS (12 sets, daily range): BP systolic 91–148; BP diastolic 46–83; PULSE 65–98; RESP 13–20; TEMP 96.6–97.9; O2SAT 95–98
[2024-09-12 08:26] LABS: BASOPHILS % (AUTO) 0.1 % (0-1); EOSINOPHILS # (AUTO) 0.1 X10'3 (0-0.9); EOSINOPHILS % (AUTO) 1.1 % (0-6); HEMATOCRIT 25.3 % (42.0-52.0); HEMOGLOBIN 8.5 g/dl (14.0-17.9); LYMPHOCYTES # (AUTO) 1.4 X10'3 (1.1-4.8); LYMPHOCYTES % (AUTO) 14.5 % (21-51); MEAN CORPUSCULAR HEMOGLOBIN 32.1 PG (27.0-31.0); MEAN CORPUSCULAR HGB CONC 33.4 g/dL (33.0-36.5); MEAN CORPUSCULAR VOLUME 96.1 FL (78-98); MEAN PLATELET VOLUME 9.3 FL (7.4-10.4); MONOCYTES # (AUTO) 0.8 X10'3 (0-0.9); MONOCYTES % (AUTO) 7.6 % (2-12); NEUTROPHILS # (AUTO) 7.6 X10'3 (1.8-7.7); NEUTROPHILS % (AUTO) 76.7 % (42-75); PLATELET COUNT 171 X10'3 (140-440); RED BLOOD COUNT 2.63 X10'6 (4.70-6.10); RED CELL DISTRIBUTION WIDTH 19.2 % (11.5-14.5); WHITE BLOOD COUNT 9.9 X10'3 (4.5-11.0)
[2024-09-12 09:08] LABS: ALANINE AMINOTRANSFERASE 42 U/L (12-78); ALBUMIN/GLOBULIN RATIO 1.3 (1.1-1.5); ALKALINE PHOSPHATASE 103 IU/L (46-116); ANION GAP 6 (8-16); ASPARTATE AMINO TRANSFERASE 35 U/L (10-37); BLOOD UREA NITROGEN 12 MG/DL (7-18); BUN/CREATININE RATIO 17.9 (10.0-20.0); CALCIUM 8.3 MG/DL (8.5-10.1); CHLORIDE 106 MMOL/L (99-107); CREATININE 0.67 MG/DL (0.60-1.10); GLUCOSE 90 MG/DL (70-104); POTASSIUM 4.1 MMOL/L (3.5-5.1); SODIUM 140 MMOL/L (135-145); TOTAL CARBON DIOXIDE 28.1 MMOL/L (24-32); TOTAL PROTEIN 5.3 G/DL (6.4-8.2); eCRCL 68 ML/MIN; eGFR > 90 ML/MIN
[2024-09-12 10:32] LABS: ANISOCYTOSIS 2+; PLATELET ESTIMATE NORMAL; TOTAL CELLS COUNTED 100
[2024-09-13] VITALS (14 sets, daily range): BP systolic 109–135; BP diastolic 50–90; PULSE 62–111; RESP 15–18; TEMP 97–98.4; O2SAT 95–98
[2024-09-13 07:40] LABS: BASOPHILS % (AUTO) 0.3 % (0-1); EOSINOPHILS # (AUTO) 0.2 X10'3 (0-0.9); EOSINOPHILS % (AUTO) 1.7 % (0-6); HEMATOCRIT 26.3 % (42.0-52.0); HEMOGLOBIN 8.7 g/dl (14.0-17.9); LYMPHOCYTES # (AUTO) 1.7 X10'3 (1.1-4.8); MEAN CORPUSCULAR HEMOGLOBIN 32.1 PG (27.0-31.0); MEAN CORPUSCULAR HGB CONC 33.3 g/dL (33.0-36.5); MEAN CORPUSCULAR VOLUME 96.5 FL (78-98); MEAN PLATELET VOLUME 9.8 FL (7.4-10.4); MONOCYTES # (AUTO) 0.7 X10'3 (0-0.9); NEUTROPHILS # (AUTO) 7.4 X10'3 (1.8-7.7); PLATELET COUNT 179 X10'3 (140-440); RED BLOOD COUNT 2.72 X10'6 (4.70-6.10); RED CELL DISTRIBUTION WIDTH 20.8 % (11.5-14.5)
[2024-09-13 08:35] LABS: ALANINE AMINOTRANSFERASE 44 U/L (12-78); ALBUMIN 3.1 G/DL (3.4-5.0); ALBUMIN/GLOBULIN RATIO 1.3 (1.1-1.5); ALKALINE PHOSPHATASE 106 IU/L (46-116); ANION GAP 6 (8-16); ASPARTATE AMINO TRANSFERASE 19 U/L (10-37); BILIRUBIN,TOTAL 0.8 MG/DL (0.1-1.0); BLOOD UREA NITROGEN 13 MG/DL (7-18); BUN/CREATININE RATIO 19.7 (10.0-20.0); CALCIUM 8.4 MG/DL (8.5-10.1); CHLORIDE 105 MMOL/L (99-107); CREATININE 0.66 MG/DL (0.60-1.10); GLUCOSE 97 MG/DL (70-104); POTASSIUM 4.3 MMOL/L (3.5-5.1); SODIUM 139 MMOL/L (135-145); TOTAL CARBON DIOXIDE 27.7 MMOL/L (24-32); TOTAL PROTEIN 5.5 G/DL (6.4-8.2); eCRCL 69 ML/MIN; eGFR > 90 ML/MIN
[2024-09-13 09:12] LABS: ANISOCYTOSIS 3+; PLATELET ESTIMATE NORMAL; TOTAL CELLS COUNTED 100
[2024-09-13 09:13] LABS: POIKILOCYTOSIS FEW
[2024-09-14] VITALS (8 sets, daily range): BP systolic 119–127; BP diastolic 67–72; PULSE 78–97; RESP 16–19; TEMP 97.5–97.7; O2SAT 95–99
[2024-09-14 07:22] LABS: BASOPHILS % (AUTO) 0.3 % (0-1); EOSINOPHILS # (AUTO) 0.2 X10'3 (0-0.9); EOSINOPHILS % (AUTO) 1.8 % (0-6); HEMATOCRIT 26.9 % (42.0-52.0); HEMOGLOBIN 8.8 g/dl (14.0-17.9); LYMPHOCYTES # (AUTO) 2.2 X10'3 (1.1-4.8); LYMPHOCYTES % (AUTO) 17.9 % (21-51); MEAN CORPUSCULAR HEMOGLOBIN 31.9 PG (27.0-31.0); MEAN CORPUSCULAR HGB CONC 32.7 g/dL (33.0-36.5); MEAN CORPUSCULAR VOLUME 97.5 FL (78-98); MEAN PLATELET VOLUME 8.7 FL (7.4-10.4); MONOCYTES # (AUTO) 0.9 X10'3 (0-0.9); MONOCYTES % (AUTO) 7.4 % (2-12); NEUTROPHILS % (AUTO) 72.6 % (42-75); PLATELET COUNT 182 X10'3 (140-440); RED BLOOD COUNT 2.76 X10'6 (4.70-6.10); RED CELL DISTRIBUTION WIDTH 19.8 % (11.5-14.5); WHITE BLOOD COUNT 12.3 X10'3 (4.5-11.0)
[2024-09-14 07:32] LABS: ALANINE AMINOTRANSFERASE 48 U/L (12-78); ALBUMIN/GLOBULIN RATIO 1.2 (1.1-1.5); ALKALINE PHOSPHATASE 99 IU/L (46-116); ANION GAP 6 (8-16); ASPARTATE AMINO TRANSFERASE 19 U/L (10-37); BILIRUBIN,TOTAL 0.9 MG/DL (0.1-1.0); BLOOD UREA NITROGEN 16 MG/DL (7-18); BUN/CREATININE RATIO 23.5 (10.0-20.0); CALCIUM 8.5 MG/DL (8.5-10.1); CHLORIDE 105 MMOL/L (99-107); CREATININE 0.68 MG/DL (0.60-1.10); GLUCOSE 91 MG/DL (70-104); POTASSIUM 4.1 MMOL/L (3.5-5.1); SODIUM 138 MMOL/L (135-145); TOTAL CARBON DIOXIDE 27.4 MMOL/L (24-32); TOTAL PROTEIN 5.5 G/DL (6.4-8.2); eCRCL 67 ML/MIN; eGFR > 90 ML/MIN
[2024-09-14 08:59] LABS: TOTAL CELLS COUNTED 100
[2024-09-14 09:00] LABS: ANISOCYTOSIS 2+; PLATELET ESTIMATE NORMAL
== END 2024-09-14 16:00 | DRG 177 ==
LOC: ER 09:47 → ED HOLD 13:20 → PCU 3S 23:03
PROVIDERS: ADMIT Family Medicine; ATTEND Family Medicine
PROC: 0W9930Z Drainage of Right Pleural Cavity with Drainage Device, Percutaneous Approach (ICD-10-PCS; principal; 2024-09-10)
PROC: 3E0L317 Introduction of Other Thrombolytic into Pleural Cavity, Percutaneous Approach (ICD-10-PCS; 2024-09-10)
PROC: 30233N1 Transfusion of Nonautologous Red Blood Cells into Peripheral Vein, Percutaneous Approach (ICD-10-PCS; 2024-09-10)
DX: J69.0 Pneumonitis due to inhalation of food and vomit (principal); J96.01 Acute respiratory failure with hypoxia; J91.8 Pleural effusion in other conditions classified elsewhere; N39.0 Urinary tract infection, site not specified; J98.11 Atelectasis; J93.9 Pneumothorax, unspecified; I10 Essential (primary) hypertension; N40.0 Benign prostatic hyperplasia without lower urinary tract symptoms; Z66 Do not resuscitate; J45.909 Unspecified asthma, uncomplicated; I51.7 Cardiomegaly; R10.9 Unspecified abdominal pain; Z20.822 Contact with and (suspected) exposure to COVID-19; D50.9 Iron deficiency anemia, unspecified; G62.9 Polyneuropathy, unspecified; G89.29 Other chronic pain; Z87.440 Personal history of urinary (tract) infections; Z85.46 Personal history of malignant neoplasm of prostate; Z88.1 Allergy status to other antibiotic agents; Z88.6 Allergy status to analgesic agent; Z79.899 Other long term (current) drug therapy; Z80.0 Family history of malignant neoplasm of digestive organs; D50.0 Iron deficiency anemia secondary to blood loss (chronic)
CPT/HCPCS: 32557; 36415; 36430; 71045; 71250; 74176; 80048; 80053; 80202; 81001; 82272; 83605; 83735; 83880; 84145; 84484; 85007; 85008; 85025; 85027; 86885; 86900; 86901; 86920; 87040; 87081; 87088; 87502; 87503; 87811; 93005; 94640; 94760; 96365; 97110; 97116; 97162; 97530; 99285; A4314; A4421; A6212; A6213; A6250; A6258; A6449; C1729; C1769; G0378; J0696; J2470; J2543; J2919; J2997; J3370; J3490; J7030; J7040; J7050; P9016

== ENCOUNTER 2025-02-07 07:50 | Emergency (ER) | payer MEDICARE, MEDICAID ==
[~2025-02-07] VITALS: Ht 157.5 cm; Wt 64.0 kg
[~2025-02-07 07:50] MED LIST changes: -NAPR-1170 PO; -NAPR-56 PO; +PANT40TA54 PO
[2025-02-07 09:29] LABS: MEAN PLATELET VOLUME 9.7 FL (7.4-10.4); PLATELET COUNT 548 X10'3 (140-440)
[2025-02-07 09:31] LABS: MEAN CORPUSCULAR HEMOGLOBIN 36.6 PG (27.0-31.0); MEAN CORPUSCULAR HGB CONC 30.6 g/dL (33.0-36.5); MEAN CORPUSCULAR VOLUME 119.5 FL (78-98); RED BLOOD COUNT 1.84 X10'6 (4.70-6.10); RED CELL DISTRIBUTION WIDTH 33.3 % (11.5-14.5)
[2025-02-07 09:36] LABS: HEMOGLOBIN 6.7 g/dl (14.0-17.9); WHITE BLOOD COUNT 68.7 X10'3 (4.5-11.0)
[2025-02-07 09:41] LABS: ALANINE AMINOTRANSFERASE 120 U/L (12-78); ALBUMIN 3.8 G/DL (3.4-5.0); ALBUMIN/GLOBULIN RATIO 1.6 (1.1-1.5); ALKALINE PHOSPHATASE 201 IU/L (46-116); ANION GAP 14 (8-16); ASPARTATE AMINO TRANSFERASE 72 U/L (10-37); BILIRUBIN,TOTAL 0.9 MG/DL (0.1-1.0); BLOOD UREA NITROGEN 20 MG/DL (7-18); CALCIUM 8.8 MG/DL (8.5-10.1); CHLORIDE 104 MMOL/L (99-107); CREATININE 0.91 MG/DL (0.60-1.10); GLUCOSE 99 MG/DL (70-104); LIPASE 22 U/L (16-77); POTASSIUM 4.4 MMOL/L (3.5-5.1); SODIUM 141 MMOL/L (135-145); TOTAL CARBON DIOXIDE 23.2 MMOL/L (24-32); TOTAL PROTEIN 6.2 G/DL (6.4-8.2); eCRCL 50 ML/MIN; eGFR 80 ML/MIN
[2025-02-07 09:58] LABS: ANISOCYTOSIS 3+; PLATELET ESTIMATE INCREASED; TOTAL CELLS COUNTED 100
[2025-02-07 09:59] LABS: POIKILOCYTOSIS FEW; POLYCHROMASIA FEW; TARGET CELLS FEW
--- NOTE | 2025-02-07 10:34 | RADIOLOGY REPORT ---
DI CHEST,SINGLE VIEW, HISTORY: cp COMPARISON: DI CHEST,SINGLE VIEW on DOS: 09/13/24, DI CHEST,SINGLE VIEW on DOS: 09/10/24, DI CHEST,SI NGLE VIEW on DOS: 09/08/24 DI CHEST,SINGLE VIEW on DOS: 09/13/24, DI CHEST,SINGLE VIEW on DOS: 09/10/24, DI CHEST,SINGLE VIEW on DOS: 09/08/24 TECHNICAL DATA: 1 view of the chest was obtained. FINDINGS: Lines and tubes: None Cardiomediastinal silhouette: normal Pulmonary vasculature: normal Lung expansion: normal Lung airspace: Lung interstitium: normal Pleura: normal Pneumothorax: no Bones: Unremarkable Other: no IMPRESSION: Bibasilar airspace opacity could be atelectasis.
--- NOTE | 2025-02-07 10:46 | RADIOLOGY REPORT ---
CT CT ABDOMEN PELVIS INDICATION: pain EXAM DATE: 02/07/2025 10:21 AM COMPARISON: CT CT CHEST ABDOMEN PELVIS on DOS: 09/08/24, CT CT ABDOMEN PELVIS on DOS: 08/29/24 RADIATION DOSE: CTDIvol: 28 mGy, DLP: 1250 mGy*cm PROCEDURE: Helical CT images were obtained of the abdomen and pelvis without IV contrast Sagittal and coronal reconstructions are provided. ORAL CONTRAST: None. ADDITIONAL IMAGES / REFORMATS: None All C T scans at this medical facility are performed using dose modulation techniques as appropriate to a p erformed exam including the following: Automated exposure control was utilized; adjustment of the MA and/or KV according to patient size; and use of iterative reconstruction technique. FINDINGS: LUNG BASE: Left basilar consolidation is most likely atelectasis. LIVER: Normal. GALLBLADDER AND BILIARY TREE: No calcified gallstones. Normal caliber wall. No intra- or extrahepatic biliary ductal dilation. PANCREAS: Normal. SPLEEN: Measures 20 cm in length. BOWEL: Normal. ADRENALS: Normal. KIDNEYS AND URETER: There is a 2.1 cm left kidney cyst. BLADDER: Normal. REPRODUCTIVE ORGANS: Surgical clips in the pelvis which could be from prostate resection. LYMPH NODES:No lymphadenopathy. PERITONEUM: No ascites or free air. No other fluid collection. VESSELS: Scattered atherosclerotic calcifications are noted. RETROPERITONEUM: Normal. ABDOMINAL WALL: Fat containing umbilical hernia. BONES: Scattered osseous degenerative changes are noted. Bones are osteopenic. There is a left hip ar throplasty. Right hip hardware is visualized. Multi level compression deformities of the thoracic and lumbar vertebral bodies. IMPRESSION: No acute intraabdominal abnormality. Large splenomegaly. Multi level compression deformities of the thoracic and lumbar vertebral bodies.
--- NOTE | 2025-02-07 10:53 | ELECTROCARDIOGRAPH REPORT ---
[facility] Test Date: 2025-02-07 Test Time: 10:49:17 Pat Name: ALYSIA SALAMANCA Department: [facility] Patient ID: [facility]-[id number] Room: Gender: M Employment Interviewer: : 1945 Requested By: ALYSIA DANIELS Order Number: [id number] Reading MD: Dr. King Maguire Measurements Intervals [place] Rate: 97 P: 41 IN: 164 QRS: 18 QRSD: 102 T: 11 QT: 354 QTc: 450 Interpretive Statements Sinus tachycardia Atrial premature complex Baseline wander in lead(s) II,III,aVR,aVF Electronically Signed On 02-13-2025 13:45:[address] King Maguire Please click the below link to view image of tracing.
[2025-02-07 12:00] LABS: APTT 31 SECONDS (22-32); INR 1.3 INR; PROTHROMBIN TIME 12.8 SECONDS (9.0-12.0)
--- NOTE | 2025-02-07 12:07 | Physician Documentation ---
History of Present Illness Chief Complaint: Abdominal Pain Stated Complaint: L SIDED ABD PAIN Time Seen by MD: 11:47 Primary Medical Doctor: [facility] HPI 79-year-old male presenting with abdominal pain for the past day. Patient states that he has had abdominal spasms. The pain will come and go and is very sharp. His over the left side of his stomach. He also states that he has been very fatigued and has lost a lot of weight over the past couple of months. He denies any nausea, vomiting or any other associated symptoms. Medication Reconciliation Allergies: Coded Allergies: ciprofloxacin (Verified Adverse Reaction, Intermediate, BODYACHES, SLEEPLESSNESS, 10/26/24) oxycodone (Verified Adverse Reaction, Unknown, 10/26/24) Suicidal Thoughts Scheduled Baclofen (Baclofen), 1 TAB PO TID, (Reported) Enzalutamide (Xtandi), 4 CAP PO DAILY, (Reported) Pantoprazole Sodium (Pantoprazole Sodium), 40 MG PO BKF [B12], 1,000 MG PO Q48H, (Reported) [B6], PO Q48H, (Reported) [Magnesium], PO Q48H, (Reported) Miscellaneous Medications Calcium Carbonate/Vitamin D3 (Calcium 600 mg-Vit D3 10Mcg Tb), (Reported) Ferrous Sulfate (Ferrous Sulfate), (Reported) Past Medical History Past Medical History: Peripheral Neuropathy, Hypertension, Bronchitis, Constipation, GI Bleed, Anemia, BPH, UTI, Chronic Pain, Chronic Back Pain, *CANCER* Past Surgical History: orthopedic surgeries, other Other Past Surgical History: Prostectomy X2, orchiectomy Patient History: FH: stomach ulcer FATHER Alcohol Use: Heavy Drug Use: marijuana Lives In: Home Occupation: retired Review of Systems All Other Systems at this time: Reviewed and Negative Physical Exam Vital Signs: Temperature: 98.2, Source: Oral, Heart Rate: 100, Respiratory Rate: 25, BP: 133/68, Pulse Oximetry: 91, Weight: 64.000 Oxygen Flow Rate: 0 Physical Exam I have reviewed the triage vitals. CONST: Fatigued, looks very pale HENT: Head Atraumatic EYES: Pupils are equal, round and reactive to light. Normal conjunctiva NECK: Normal range of motion. Supple. CARDIO: Normal rate and regular rhythm. No murmurs, rubs, or gallops. S1, S2. PULM/CHEST: No respiratory distress. Lungs clear to auscultation. No wheeze ABD: Slightly distended. Diffusely tender to palpation especially over the left side. Bowel sounds normal. : Exam deferred MSK: No edema. No deformity. NEURO: Alert and oriented to person, place and time. Moving all extremities SKIN: Extremely pale PSYCH: Normal mood and affect. Good eye contact. Progress Results/Orders Results/Orders Orders - LEEANNE EL MD Urinalysis, Cult If Indicated (02/07/25 07:57) Completed Orders - LEEANNE EL MD Cbc/Diff (02/07/25 07:57) BMP (02/07/25 07:57) Lipase (02/07/25 07:57) CMP (02/07/25 07:57) Man Diff (02/07/25 09:01) Pathology Review (02/07/25 09:01) Vital Signs 02/07/25 02/07/25 07:54 10:40 Temp 98.2 Pulse 100 100 Resp 18 25 B/P (MAP) 136/66 133/68 (89) Pulse Ox 95 91 O2 Flow Rate 0 Laboratory Tests Test 02/07/25 09:01 02/07/25 11:30 White Blood Count 68.7 *H Red Blood Count 1.84 L Hemoglobin 6.7 *L Hematocrit 22.0 *L Mean Corpuscular Volume 119.5 H Mean Corpuscular Hemoglobin 36.6 H Mean Corpuscular Hemoglobin Concent 30.6 L Red Cell Distribution Width 33.3 H Platelet Count 548 H Mean Platelet Volume 9.7 Neutrophils (%) (Auto) Lymphocytes (%) (Auto) Monocytes (%) (Auto) Eosinophils (%) (Auto) Basophils (%) (Auto) Neutrophils # (Auto) Lymphocytes # (Auto) Monocytes # (Auto) Eosinophils # (Auto) Basophils # (Auto) CBC Comment Differential Total Cells Counted 100 Neutrophils % (Manual) 24.0 L Band Neutrophils % 4.0 Lymphocytes % (Manual) 19.0 L Monocytes % (Manual) 28.0 H Reactive Lymphocytes 1.0 H Immature Blood Cells 24.0 H Platelet Estimate Increased Red Blood Cell Morphology Perf Polychromasia Few Poikilocytosis Few Basophilic Stippling Anisocytosis 3+ Macrocytosis 2+ Target Cells Few Hematology Pathologist Comment See note Sodium Level 141 Potassium Level 4.4 Chloride Level 104 Carbon Dioxide Level 23.2 L Anion Gap 14 Blood Urea Nitrogen 20 H Creatinine 0.91 Estimated GFR/1.73 m2 80 BUN/Creatinine Ratio 22.0 H Glucose Level 99 Calcium Level 8.8 Total Bilirubin 0.9 Aspartate Amino Transf (AST/SGOT) 72 H Alanine Aminotransferase (ALT/SGPT) 120 H Alkaline Phosphatase 201 H Total Protein 6.2 L Albumin 3.8 Globulin 2.4 L Albumin/Globulin Ratio 1.6 H Lipase 22 Chemistry Comments Prothrombin Time 12.8 H INR International Normalized Ratio 1.3 Activated Partial Thromboplast Time 31 Coagulation Comments Troponin I High Sensitivity 7 EKG/XRAY/CT/US/VASC/MRI EKG : Additional Comment EKG as interpreted by ED MD showing normal sinus rhythm with a rate of 98 beats per minute, normal axis, no ischemia Chest X-Ray : Additional Comments DI CHEST,SINGLE VIEW, HISTORY: cp COMPARISON: DI CHEST,SINGLE VIEW on DOS: 09/13/24, DI CHEST,SINGLE VIEW on DOS: 09/10/24, DI CHEST,SINGLE VIEW on DOS: 09/08/24 DI CHEST,SINGLE VIEW on DOS: 09/13/24, DI CHEST,SINGLE VIEW on DOS: 09/10/24, DI CHEST,SINGLE VIEW on DOS: 09/08/24 TECHNICAL DATA: 1 view of the chest was obtained. FINDINGS: Lines and tubes: None Cardiomediastinal silhouette: normal Pulmonary vasculature: normal Lung expansion: normal Lung airspace: Lung interstitium: normal Pleura: normal Pneumothorax: no Bones: Unremarkable Other: no IMPRESSION: Bibasilar airspace opacity could be atelectasis. CT : Impression CT CT ABDOMEN PELVIS INDICATION: pain EXAM DATE: 02/07/2025 10:21 AM COMPARISON: CT CT CHEST ABDOMEN PELVIS on DOS: 09/08/24, CT CT ABDOMEN PELVIS on DOS: 08/29/24 RADIATION DOSE: CTDIvol: 28 mGy, DLP: 1250 mGy*cm PROCEDURE: Helical CT images were obtained of the abdomen and pelvis without IV contrast Sagittal and coronal reconstructions are provided. ORAL CONTRAST: None. ADDITIONAL IMAGES / REFORMATS: None All CT scans at this medical facility are performed using dose modulation techniques as appropriate to a performed exam including the following: Automated exposure control was utilized; adjustment of the MA and/or KV according to patient size; and use of iterative reconstruction technique. FINDINGS: LUNG BASE: Left basilar consolidation is most likely atelectasis. LIVER: Normal. GALLBLADDER AND BILIARY TREE: No calcified gallstones. Normal caliber wall. No intra- or extrahepatic biliary ductal dilation. PANCREAS: Normal. SPLEEN: Measures 20 cm in length. BOWEL: Normal. ADRENALS: Normal. KIDNEYS AND URETER: There is a 2.1 cm left kidney cyst. BLADDER: Normal. REPRODUCTIVE ORGANS: Surgical clips in the pelvis which could be from prostate resection. LYMPH NODES:No lymphadenopathy. PERITONEUM: No ascites or free air. No other fluid collection. VESSELS: Scattered atherosclerotic calcifications are noted. RETROPERITONEUM: Normal. ABDOMINAL WALL: Fat containing umbilical hernia. BONES: Scattered osseous degenerative changes are noted. Bones are osteopenic. There is a left hip arthroplasty. Right hip hardware is visualized. Multi level compression deformities of the thoracic and lumbar vertebral bodies. IMPRESSION: No acute intraabdominal abnormality. Large splenomegaly. Multi level compression deformities of the thoracic and lumbar vertebral bodies. Medical Decision Making Additional Comments 79-year-old male initially presenting with abdominal pain but found to have severe leukocytosis with a WBC count of 68. Patient is also anemic with a hemoglobin of 6.7. This is a significant change from his most recent blood work two months ago where he had a normal white blood cell count as well as a hemoglobin of 7.9. CT of the abdomen and pelvis was unremarkable. Patient's workup indicates likely and possible acute leukemia. Chest x-ray does indicate some atelectasis but no signs of any other acute pathology. The patient was typed and screened and given 1 unit of packed red blood cells. Additionally he was covered for any potential infectious etiology with 1 g of ceftriaxone as he did have an elevated procalcitonin. Patient will need transfer for evaluation of acute leukemia versus other etiology. As we do not have hematology/oncology available at this hospital the patient will require transfer. Addendum I received sign-out on this patient at shift change, pending transfer for Oncology. 8:15 p.m.: Consult: I spoke to Dr. Miramontes, hospitalist at [facility]. She will accept the patient for transfer for admission and further workup. 9:45 p.m.: Transport here, the patient was taken by EMS. Gurvinder Monterroso MD Departure Disposition: 02 SHORT TERM HOSPITAL Impression: Primary Impression: Acute leukemia Additional Impressions: Anemia Leukocytosis Abdominal pain Referrals: NO PRIMARY CARE PROVIDER (PCP) Signature Scribe Signature: na Attestation: LEEANNE Gonsalez MD February 07, 2025 12:07 GURVINDER MONTERROSO MD February 07, 2025 20:15
[2025-02-07] MEDS: normal saline 1000ml 1,000 ML IV ONE (12:30)
[2025-02-07] MEDS: morphine 4 MG/ML inj SYRINge IV ONE (12:35)
[2025-02-07] MEDS: ondansetron/PF 4mg/2ml inj IV ONE (12:38)
[2025-02-07 13:15] LABS: BILIRUBIN,URINE NEGATIVE (Neg); CLARITY,URINE CLEAR (Clear); COLOR,URINE YELLOW (Yellow); GLUCOSE, URINE NEGATIVE (Neg); KETONES,URINE TRACE mg/dl (Neg); LEUKOCYTE ESTERASE ,URINE NEGATIVE (Neg); NITRITES, URINE NEGATIVE (Neg); OCCULT BLOOD,URINE NEGATIVE (Neg); PROTEIN,URINE 30 mg/dl (Neg); UROBILINOGEN,URINE 0.2 E.U/dL (0.2-1.0)
[2025-02-07 13:19] LABS: UA COLLECTION TYPE URINAL
[2025-02-07 13:20] LABS: BACTERIA,URINE NONE SEEN /HPF (Neg); MUCUS STRANDS FEW /LPF (Neg); RBC,URINE NONE SEEN /HPF (0-2); SQUAMOUS EPITHELIAL CELL,UR NONE SEEN /LPF (FEW); WBC,URINE NONE SEEN /HPF (0-4)
[2025-02-07] MEDS: CefTRIAXone/D5W-Rocephin 1gm 50 ML IV ONE (14:35)
[2025-02-07] MEDS: acetaminophen 325mg tablet PO ONE (16:50)
[2025-02-07 18:09] VITALS: BP 109/56; PULSE 84; RESP 24; TEMP 99.1
[2025-02-07 18:28] VITALS: BP 116/54; PULSE 85; RESP 18; TEMP 98.8
[2025-02-07 19:00] VITALS: BP 125/58; PULSE 84; RESP 16; TEMP 98.3
[2025-02-07 19:53] VITALS: BP 122/59; PULSE 80; RESP 13; TEMP 98.3
[2025-02-07 21:00] VITALS: BP 125/60; PULSE 80; RESP 18; TEMP 98.1
[2025-02-07 22:06] VITALS: BP 126/84; PULSE 70; RESP 18; TEMP 98.1; O2SAT 99
== END 2025-02-07 22:08 | disposition short-term general hospital (02) ==
LOC: ER 07:50
DX: C95.00 Acute leukemia of unspecified cell type not having achieved remission (principal); D64.9 Anemia, unspecified; I10 Essential (primary) hypertension; F12.90 Cannabis use, unspecified, uncomplicated; Z88.1 Allergy status to other antibiotic agents; Z88.5 Allergy status to narcotic agent; Z90.79 Acquired absence of other genital organ(s)
CPT/HCPCS: 36415; 36430; 71045; 74176; 80053; 81001; 83605; 83690; 84145; 84484; 84550; 85025; 85610; 85730; 86885; 86900; 86901; 86920; 87040; 93005; 96361; 96365; 96375; 99285; A4620; J0696; J2270; J2405; J7030; P9016; 85007

== ENCOUNTER 2025-04-14 19:04 | Emergency (ER) | payer MEDICARE, MEDICAID ==
--- NOTE | 2025-04-14 19:23 | Physician Documentation ---
History of Present Illness ~ Stated Complaint: SHINGLES Time Seen by MD: 19:09 Primary Medical Doctor: [facility] HPI This is an 79-year-old gentleman who was transported by ambulance from [place] for evaluation of rash. Evidently the home health that attempts to his current leukemia, refused to see him until he will have this rash diagnosed and/or treat it, therefore he had to come in. He has a known leukemia. He is currently not on chemo treatment for this leukemia. He developed a painful rash on the left side of his neck with a some vesicles several days ago. No particular palliating or aggravating factors. Did not attempt to treat it. Denies any vision or hearing changes. Denies pain in the eyes, denies the pain in the ears. Denies any fevers. He did have to have transfusion for his leukemia in the past. Denies chest pain or difficulty breathing. Medication Reconciliation Allergies: Coded Allergies: ciprofloxacin (Verified Adverse Reaction, Intermediate, BODYACHES, SLEEPLESSNESS, 04/14/25) oxycodone (Verified Adverse Reaction, Unknown, 04/14/25) Suicidal Thoughts Scheduled Baclofen (Baclofen), 1 TAB PO TID, (Reported) Enzalutamide (Xtandi), 4 CAP PO DAILY, (Reported) Pantoprazole Sodium (Pantoprazole Sodium), 40 MG PO BKF [B12], 1,000 MG PO Q48H, (Reported) [B6], PO Q48H, (Reported) [Magnesium], PO Q48H, (Reported) Miscellaneous Medications Calcium Carbonate/Vitamin D3 (Calcium 600 mg-Vit D3 10Mcg Tb), (Reported) Ferrous Sulfate (Ferrous Sulfate), (Reported) Past Medical History Past Medical History: Peripheral Neuropathy, Hypertension, Bronchitis, Constipation, GI Bleed, Anemia, BPH, UTI, Chronic Pain, Chronic Back Pain, *CANCER* Past Surgical History: orthopedic surgeries, other Other Past Surgical History: Prostectomy X2, orchiectomy Patient History: FH: stomach ulcer FATHER Alcohol Use: Heavy Drug Use: marijuana Lives In: Home Occupation: retired Review of Systems ROS 10 point review of systems was performed and unless noted above in HPI is negative for acute process/complaint. Physical Exam Physical Exam GENERAL: Awake, alert, oriented, GCS 15, no apparent distress, pale and chronically ill appearing, answers questions, follows commands appropriately. Pleasant gentleman examined in the EMS gurney. HEENT: Atraumatic, normocephalic, pupils equal, extraocular muscles intact, sclerae anicteric, mucus membranes moist, oropharynx is clear, no stridor. NECK: supple, full active range of motion, trachea midline, no thyromegaly, no lymphadenopathy, no JVD. CARDIOVASCULAR: regular rate/rhythm, no murmurs/gallops/rubs, Pulses are 2+ in all extremities and symmetric. Capillary refill less than 2 seconds. PULMONARY: Nonlabored, good air movement ,no respiratory distress, speaking in full sentences, clear to auscultation bilaterally, no wheezing, no ronchi, no rales, no accessory muscle use. GASTROINTESTINAL: Soft, non-tender, non-distended, normal active bowel sounds, no organomegaly, no pulsatile masses, no CVA tenderness. NEUROLOGIC: Lucid with normal mental status. Normal facial symmetry. Moves all extremities symmetrically and with purpose. No truncal ataxia. Speech is fluid without evidence of dysarthria or aphasia, no focal deficits appreciated. MUSCULOSKELETAL: There is full range of motion of all extremities. There is no joint pain or joint swelling or joint erythema. There is no muscle pain or tenderness or swelling. EXTREMITIES: warm, well-perfused, no cyanosis, no clubbing, no edema, no acute deformities. Skin: warm, dry, there is an extensive vesicular rash on the left side of his neck mostly in C3 and C4 dermatome, no contralateral involvement, multiple vesicles noted in various stages of healing, no jaundice, no petechiae orpurpur a. No ecchymosis. PSYCHIATRIC: Normal affect, normal insight, normal concentration. Focused exam: [] Progress Results/Orders Results/Orders Orders - CANDY FOSTER DO Varicella Zoster Dna Pcr (04/14/25 19:10) Cbc/Diff (04/14/25 19:10) Culture Blood (04/14/25 19:10) Man Diff (04/14/25 19:22) Pathology Review (04/14/25 19:22) Completed Orders - CANDY FOSTER DO ESR (04/14/25 19:10) LDH (04/14/25 19:10) C-Reactive Protein (04/14/25 19:10) PBNP (04/14/25 19:10) Hs Troponin I W Calculations (04/14/25 19:10) CMP (04/14/25 19:10) Lacticsepsis (04/14/25 19:10) Vital Signs 04/14/25 19:20 Temp 97.8 Pulse 96 Resp 15 B/P (MAP) 120/66 Pulse Ox 94 O2 Flow Rate 2.0 Laboratory Tests Test 04/14/25 19:22 White Blood Count 10.7 Red Blood Count 2.76 L Hemoglobin 9.1 L Hematocrit 27.3 L Mean Corpuscular Volume 98.8 H Mean Corpuscular Hemoglobin 33.1 H Mean Corpuscular Hemoglobin Concent 33.5 Red Cell Distribution Width 29.4 H Platelet Count 303 Mean Platelet Volume 11.3 H Neutrophils (%) (Auto) 1.8 L Lymphocytes (%) (Auto) 10.5 L Monocytes (%) (Auto) 87.5 H Eosinophils (%) (Auto) 0.2 Basophils (%) (Auto) 0 Neutrophils # (Auto) 0.2 L Lymphocytes # (Auto) 1.1 Monocytes # (Auto) 9.4 H Eosinophils # (Auto) 0.0 Basophils # (Auto) 0.0 CBC Comment Basophilic Stippling Erythrocyte Sedimentation Rate 12 Sodium Level 135 Potassium Level 4.0 Chloride Level 100 Carbon Dioxide Level 28.9 Anion Gap 6 L Blood Urea Nitrogen 14 Creatinine 0.61 Estimated GFR/1.73 m2 > 90 BUN/Creatinine Ratio 23.0 H Glucose Level 104 Lactic Acid Level 1.0 Calcium Level 8.3 L Total Bilirubin 0.9 Aspartate Amino Transf (AST/SGOT) 96 H Alanine Aminotransferase (ALT/SGPT) 171 H Alkaline Phosphatase 245 H Lactate Dehydrogenase 405 H Troponin I High Sensitivity 6 C-Reactive Protein 0.93 H Pro-B-Type Natriuretic Peptide 349 Total Protein 6.0 L Albumin 3.8 Globulin 2.2 L Albumin/Globulin Ratio 1.7 H Chemistry Comments Microbiology Date/Time Source Procedure Growth Status 04/14/25 19:30 Blood Arm Left Blood Culture - Preliminary NEGATIVE (LESS THAN 24 HOURS) Resulted Medical Decision Making Findings Facility Status: ED Holds, [facility] process The plan was discussed with the patient, who demonstrates clear understanding of the plan and is in agreement with the plan unless otherwise noted in the chart. All questions have been answered, all concerns were addressed unless otherwise documented. I was available throughout their ED stay for frequent reassessment and questions. Differential Diagnoses (considered and possible or likely): [Most likely represents a varicella, clinically not consistent with [place], not consistent with a zoster ophthalmicus, given his immunocompromised status I feel that it warrants to evaluate for potential disseminated herpes zoster. No e vidence of superimposed cellulitis at this time.] ??Differential Diagnoses (considered and unlikely, not requiring evaluation currently): [See above] MDM Data Please see [facility] for the following: Independent Historians and external Records Review. Historian: [Patient] Independent Historians: ?[EMS, record review] Medication Management: [Reviewed medication list] Social History and determinants: [Reviewed] Please see the body of the note for the following: Any independent interpretations of ECG, imaging studies. All vitals signs/haemodynamics, ordered tests were independently reviewed and interpreted by myself. Nursing triage complaint and vitals reviewed, additional nursing notes were reviewed as available and I agree unless otherwise noted or documented in contradiction in the chart Vital Signs: Independently reviewed Labs: Independently interpreted Imaging: Independently interpreted Old Medical Records: Independently reviewed, see [facility] for relevant summary and information Pulse Oximetry: [97%] interpreted as [normal on room air] by me Additionally notably showing: [Hemodynamically stable. 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 Mild elevation of LDH, mild transaminitis. Clinically no evidence of hepatitis. No evidence of disseminated VZV.] Tests considered but not ordered include: [Imaging does not appear to be necessary] Social Determinants of Health Impact: Patient was evaluated in [facility] [place] access to healthcare due to below par ratio of patient to medical providers. [] Comorbid Conditions Impacting Present Evaluation and Care/Treatment: [ active cancer] Management Discussions with other Healthcare Providers: [none] Treatment and Disposition Medication Management (Given or considered): []. See EMR for details Consideration for Hospitalization/Escalation/Deescalation of Care: Admission for observation has been considered, [however the patient is able to tolerate p.o., their symptoms are controlled, they are able to rely on oral medications, and their chief complaint/diagnosis can be managed on outpatient basis.] ?ED Course:?[No clinical deterioration.] ?Shared decision making:?[Patient is hemodynamically stable for discharge home with follow with their primary care provider. [ ] Specific and cautious return precautions provided and discussed with full understanding. Any incidental findings were also discussed and follow up recommendations given. [] All questions answered. Patient/family were able to verbalize back return precautions. Patient/family agree to plan. Copies of imaging and laboratory studies were provided.] Code status:?FULL Please see the full Electronic Medical Record for full details of nursing documentation, medications list, other records of complete past medical history and conditions, vital signs, laboratory studies, and any radiologic study interpretations by radiologists. Portions of this note were completed using [employer] dictation software and as a result there may exist minor errors in spelling. I have reviewed elements of past family and social history and agree as included in note. Departure Disposition: 01 HOME / SELF CARE / HOMELESS Impression: Primary Impression: Shingles Condition: Stable Discharge Instructions: Shingles Referrals: NO PRIMARY CARE PROVIDER (PCP) Prescriptions Valacyclovir HCl (Valacyclovir) 1,000 Mg Tablet 1 TAB PO Q8H for 14 Days, #42 TAB 0 Refills Prov: CANDY FOSTER DO 04/14/25 Education Educated: Patient Educated regarding: diagnosis, treatment, prognosis, need for follow up Signature Scribe Signature: No scribe Attestation: This note accurately reflects clinical decisions, work performed by myself, DO CRISTIAN Munson NICHOLAS M DO Apr 14, 2025 19:23
[2025-04-14 19:46] LABS: RED CELL DISTRIBUTION WIDTH 29.4 % (11.5-14.5)
[2025-04-14 19:47] LABS: MEAN PLATELET VOLUME 11.3 FL (7.4-10.4)
[2025-04-14 20:19] LABS: CREATININE 0.61 MG/DL (0.60-1.10); TOTAL CARBON DIOXIDE 28.9 MMOL/L (24-32); eGFR > 90 ML/MIN
[2025-04-14 20:21] LABS: LACTATE DEHYDROGENASE 405 U/L (85-227); PRO BRAIN NATRIURETIC PEPTIDE 349 PG/ML (0-450)
[2025-04-14] MEDS ORDERED: VALA100031 PO (22:18)
[2025-04-14 22:22] VITALS: BP 133/66; PULSE 78; RESP 12; O2SAT 98
[2025-04-14 22:29] VITALS: TEMP 97.8
[2025-04-14 22:32] LABS: GIANT PLATELET FEW; LARGE PLATELETS MODERATE; PLATELET ESTIMATE NORMAL
[2025-04-14 22:33] LABS: ELLIPTOCYTES FEW
[2025-04-14 22:50] LABS: BANDS% (MANUAL) 1 % (0-10); IMMATURE CELLS 7 % (0-0); LYMPHOCYTES % (MANUAL) 9 % (21-51); MONOCYTES % (MANUAL) 82 % (2-12); NUCLEATED RED BLOOD CELLS 2 /100WBC (0-0)
[2025-04-14 22:51] LABS: HYPOGRANULAR PLATELETS FEW
== END 2025-04-14 22:30 | disposition home or self-care (01) ==
LOC: ER 19:05
DX: B02.9 Zoster without complications (principal); I10 Essential (primary) hypertension; N40.0 Benign prostatic hyperplasia without lower urinary tract symptoms; F12.90 Cannabis use, unspecified, uncomplicated; F10.90 Alcohol use, unspecified, uncomplicated; Z87.440 Personal history of urinary (tract) infections; Z88.1 Allergy status to other antibiotic agents; Z88.5 Allergy status to narcotic agent; Z90.79 Acquired absence of other genital organ(s); Y90.9 Presence of alcohol in blood, level not specified
CPT/HCPCS: 36415; 80053; 83605; 83615; 83880; 84484; 85007; 85025; 85651; 86140; 87040; 87798; 99284